=== PATIENT | male | born 1950 | race Caucasian/White ===

== ENCOUNTER 2018-02-18 12:07 | Emergency (ER) | payer OTHER ==
[2018-02-18 12:40] VITALS: BP 144/82; PULSE 97; RESP 17; TEMP 98.3
[2018-02-18] MEDS ORDERED: PROP150T PO (13:24)
[2018-02-18] MEDS ORDERED: METO1TAB42 PO (13:24)
[2018-02-18] MEDS ORDERED: PRAD150C PO (13:24)
[2018-02-18] MEDS ORDERED: HYDR12.57 PO (13:24)
[2018-02-18] MEDS ORDERED: ATOR40TA16 PO (13:24)
[2018-02-18] MEDS ORDERED: AMLO10CA PO (13:24)
--- NOTE | 2018-02-18 14:11 | RADRPT ---
EXAM DATE/TIME: 02/18/2018 13:33 [place] COMPARISON: No previous studies available for comparison. INDICATIONS : Left foot pain, no injury. MEDICAL HISTORY : None. SURGICAL HISTORY : None. ENCOUNTER: Initial ACUITY: 1 day PAIN SCORE: 9/10 LOCATION: Left heel FINDINGS: There is an old healed fracture involving the midshaft of the left third metatarsal. Moderate degener ative changes are noted involving the left first metatarsophalangeal joint. There is no acute fractur e or dislocation of the left foot. Achilles calcaneal spurring is noted. CONCLUSION: Moderate degenerative changes involving the left first metatarsophalangeal joint. No acute fracture o r dislocation. Achilles calcaneal spurring. Rc Irene MD on February 18, 2018 at 14:07 Board Certified Radiologist. This report was verified electronically.
[2018-02-18] MEDS ORDERED: MEDR4PAK PO (14:17)
--- NOTE | 2018-02-18 14:17 | PD ---
HPI Chief Complaint: Injury Time Seen by Provider: 13:21 Travel History International Travel<30 days: No Contact w/Intl Traveler<30days: No Traveled to known affect area: No History of Present Illness HPI 67-year-old male presents to the emergency department with complaint of left foot pain just below his first toe and pain to the back of his ankle x5 days. Denies injury. Denies history of gout. Says he has been tested for gout and was told his test were negative. Reports history of arthritis in his foot. Denied paraesthesia, loss of sensation, decreased range of motion, decreased strength to the affected extremity. Denies fever, vomiting. Is ambulatory in the affected extremity. Rates pain 7/10. Worse with walking. Better at rest and in the mornings when he wakes up. Worse throughout the day. Has taken Tylenol for symptom management without good relief. History of hypertension, stroke, A. fib. Takes Pradaxa. Primary care provider is the OR clinic. No known allergies. Has no other medical complaints. No other modifying factors or associated signs and symptoms. PFSH Past Medical History Atrial Fibrillation: Yes High Cholesterol: Yes Hypertension: Yes Tetanus Vaccination: < 5 Years Past Surgical History Surgical History: No Previous Surgery Social History Alcohol Use: Yes (beer 2 day) Tobacco Use: Yes Substance Use: No Allergies-Medications (Allergen,Severity, Reaction): Coded Allergies: No Known Allergies (Unverified , 02/18/18) Reported Meds & Prescriptions Reported Meds & Active Scripts Active Medrol Dosepak (Methylprednisolone) 4 Mg Dspk 4 Mg PO DIRECTED Per Pharmacist direction Reported Metoprolol Succinate ER 24 HR (Metoprolol Succinate) 25 Mg Tab 12.5 Mg PO DAILY Atorvastatin (Atorvastatin Calcium) 40 Mg Tab 40 Mg PO HS Propafenone (Propafenone HCl) 150 Mg Tab 150 Mg PO Q8HR Amlodipine-Benazepril 10-20 Mg Cap 1 Cap PO DAILY Pradaxa (Dabigatran) 150 Mg Cap 150 Mg PO BID Hydrochlorothiazide 12.5 Mg Cap 12.5 Mg PO EVERY OTHER DAY Review of Systems Except as stated in HPI: all other systems reviewed are Neg Physical Exam Narrative GENERAL: Well-nourished, well-developed male patient, in no acute distress SKIN: Warm and dry. HEAD: Atraumatic. Normocephalic. EYES: Pupils equal and round. No scleral icterus. No injection or drainage. ENT: Mucosa pink and moist. Airway patent. NECK: Trachea midline. CARDIOVASCULAR: Regular rate. RESPIRATORY: No accessory muscle use. GASTROINTESTINAL: Flat. MUSCULOSKELETAL: Left foot with edema to the first metacarpal joint region; without erythema; with tenderness on palpation. tenderness on palpation to the area of the Achilles tendon; areas without edema, ecchymosis, erythema. No obvious deformities. Left lower extremity is supple and nontender with 2+ pedal pulse and sensory intact and without erythema. No clubbing. No cyanosis. No edema. NEUROLOGICAL: Awake and alert. Oriented 3. No obvious cranial nerve deficits. Motor grossly within normal limits. Normal speech. PSYCHIATRIC: Appropriate mood and affect; insight and judgment normal. Data Data Last Documented VS Vital Signs Date Time Temp Pulse Resp B/P (MAP) Pulse Ox O2 Delivery O2 Flow Rate FiO2 02/18/18 12:40 98.3 97 17 144/82 (102) Orders Orders Foot, Complete ([id number]) (02/18/18 12:44) Ed Discharge Order (02/18/18 14:18) MDM Medical Decision Making Medical Screen Exam Complete: Yes Emergency Medical Condition: Yes Medical Record Reviewed: Yes Differential Diagnosis Calcaneal spur, arthritis, gout, foot sprain, stress fracture Narrative Course 67-year-old male with left foot pain to the first MTP joint and to the area of the Achilles tendon. Denies history of gout. Patient is afebrile and nontoxic- appearing. Denies fever, vomiting. Left foot x-ray ordered in triage. 1414: Foot x-ray concludes: Foot X-Ray 02/18/18 1244 Signed Impressions: Service Date/Time: Sunday, February 18, 2018 13:33 - CONCLUSION: Moderate degenerative changes involving the left first metatarsophalangeal joint. No acute fracture or dislocation. Achilles calcaneal spurring. Rc Irene MD Patient provided a copy of the x-ray report. Instructed to follow-up with podiatry. Medrol Dosepak prescribed for home. Patient has prescription of tramadol at home for pain. I have for the patient crutches and an Cullen bandage for support and he declined. Instructed patient to follow up with primary care provider. Patient verbalizes understanding and agreement with treatment plan. Patient is medically cleared and stable for discharge. Discussed reasons to return to the emergency department. Patient agrees with treatment plan. The patients vital signs are stable and the patient is stable for outpatient follow- up and treatment. Patient discharged home, stable and in no acute distress. Diagnosis Primary Impression: Calcaneal spur, left Additional Impression: Arthritis of first metatarsophalangeal (MTP) joint of left foot Referrals: English Lecturer Primary Care Physician Patient Instructions: Arthritis (ED), General Instructions, Heel Spur (ED) Additional Instructions: Tylenol as directed and as needed for pain Medrol Dosepak as directed Avoid aggravating activity Cane/walker as needed for support Follow-up with primary care provider Follow-up with delicatessen manager Return to the emergency department immediately for worsening of symptoms Med/Other Pt SpecificInfo: Prescription(s) given Scripts Methylprednisolone Dosepak (Medrol Dosepak) 4 Mg Dspk 4 MG PO DIRECTED, #1 DSPK 0 Refills Per Pharmacist direction Prov: Barb Vazquez 02/18/18 Disposition: DISCHARGE HOME Condition: Stable Barb Vazquez Feb 18, 2018 14:17
== END 2018-02-18 14:37 | disposition home or self-care (01) ==
LOC: NEPK 12:07
DX: M77.32 Calcaneal spur, left foot (principal); M19.072 Primary osteoarthritis, left ankle and foot; I10 Essential (primary) hypertension; I48.91 Unspecified atrial fibrillation; E78.00 Pure hypercholesterolemia, unspecified; Z86.73 Personal history of transient ischemic attack (TIA), and cerebral infarction without residual deficits; Z72.0 Tobacco use; Z79.899 Other long term (current) drug therapy
CPT/HCPCS: 73630; 99283